=== PATIENT | female | born 1970 | race Caucasian/White ===

== ENCOUNTER 2023-05-07 22:12 | Inpatient (IN) ==
[2023-05-07] MEDS: ONDANSETRON 4 MG/2 ML VIAL IV ONE (23:01)
[2023-05-07 23:35] LABS: ALT/SGPT 32 U/L (<40); AST/SGOT 25 U/L (<32); Albumin 4.2 gm/dL (3.2-5.2); Albumin/Globulin Ratio 1.3 (1.0-2.3); Alkaline Phosphatase 119 U/L (39-117); Bilirubin,Total 0.2 mg/dL (0.1-1.0); Blood Urea Nitrogen 23 mg/dL (6-20); Calcium 9.7 mg/dL (8.6-10.4); Carbon Dioxide 28 mmol/L (22-30); Chloride 79 mmol/L (96-108); Globulin 3.2 gm/dL (2.2-3.7); Glomerular Filtration Rate 63; Glucose 159 mg/dL (70-105)
[2023-05-07 23:51] LABS: Basophils # (Auto) 0.04 K/mcL (0.00-0.30); Basophils % (Auto) 0.3 % (0.0-2.0); Eosinophils # (Auto) 0.14 K/mcL (0.00-0.70); Eosinophils % (Auto) 1.1 % (0.0-7.0); Hematocrit 33.8 % (34.1-44.9); Hemoglobin 12.3 g/dL (11.2-15.7); Lymphocytes # (Auto) 3.81 K/mcL (1.50-4.80); Lymphocytes % (Auto) 30.6 % (15.5-49.0); Mean Cell Volume 82.6 fL (80.0-100.0); Mean Corpuscular HGB Conc 36.4 g/dL (31.0-36.0); Mean Platelet Volume 8.5 fL (8.8-12.5); Monocytes # (Auto) 1.41 K/mcL (0.10-0.90); Monocytes % (Auto) 11.3 % (1.0-12.0); Neutrophils % (Auto) 56.3 % (38.0-78.0); Platelet Count 368 K/mcL (140-440); RBC 4.09 M/mcL (3.59-5.38); Red Cell Distribution Width 11.7 % (11.5-14.5); WBC 12.4 K/mcL (4.5-11.0)
[2023-05-08] MEDS ORDERED: hydrALAZINE 20 MG/ML VIAL IV PRN (01:20)
[2023-05-08] MEDS: 0.9 % SODIUM CHLORIDE 1,000 ML IV SCH (01:40)
[2023-05-08] MEDS ORDERED: ONDANSETRON 4 MG/2 ML VIAL IV PRN ×2 (01:58→07:38)
[2023-05-08] MEDS ORDERED: POTASSIUM CHLORIDE 40 MEQ in DEXTROSE 5% IN WATER 500 ML IV PRN (07:38)
[2023-05-08] MEDS ORDERED: MAGNESIUM SULFATE 2 GM/50 ML BAG IV PRN (07:38)
[2023-05-08] MEDS ORDERED: POTASSIUM CHLORIDE 20 MEQ TABLET PO PRN (07:38)
[2023-05-08] MEDS ORDERED: POLYETHYLENE GLYCOL 3350 17 GM PACKET PO PRN (07:38)
[2023-05-08] MEDS ORDERED: ENALAPRILAT 1.25 MG/ML VIAL IV PRN (07:38)
[2023-05-08] MEDS ORDERED: DEXTROSE 31 GM ORAL.SUSP PO PRN (07:39)
[2023-05-08] MEDS ORDERED: PROCHLORPERAZINE 10 MG/2 ML VIAL IV PRN (07:39)
[2023-05-08] MEDS ORDERED: IPRATROPIUM/ALBUTEROL 3 ML AMPUL.NEB NEB PRN (07:39)
[2023-05-08] MEDS ORDERED: ACETAMINOPHEN 325 MG TABLET PO PRN (07:39)
[2023-05-08] MEDS ORDERED: DEXTROSE 50% 50 ML VIAL IV PRN (07:39)
[2023-05-08 08:13] LABS: Basophils # (Auto) 0.02 K/mcL (0.00-0.30); Basophils % (Auto) 0.2 % (0.0-2.0); Eosinophils # (Auto) 0.11 K/mcL (0.00-0.70); Eosinophils % (Auto) 1.3 % (0.0-7.0); Hematocrit 33.6 % (34.1-44.9); Lymphocytes # (Auto) 2.48 K/mcL (1.50-4.80); Lymphocytes % (Auto) 29.3 % (15.5-49.0); Mean Cell Volume 83.8 fL (80.0-100.0); Mean Corpuscular HGB Conc 35.7 g/dL (31.0-36.0); Mean Platelet Volume 8.5 fL (8.8-12.5); Monocytes # (Auto) 0.92 K/mcL (0.10-0.90); Monocytes % (Auto) 10.9 % (1.0-12.0); Neutrophils % (Auto) 58.1 % (38.0-78.0); Platelet Count 336 K/mcL (140-440); RBC 4.01 M/mcL (3.59-5.38); Red Cell Distribution Width 11.7 % (11.5-14.5); WBC 8.5 K/mcL (4.5-11.0)
[2023-05-08 08:39] LABS: ALT/SGPT 30 U/L (<40); AST/SGOT 33 U/L (<32); Albumin 4.3 gm/dL (3.2-5.2); Albumin/Globulin Ratio 1.5 (1.0-2.3); Alkaline Phosphatase 130 U/L (39-117); Bilirubin,Direct < 0.2 mg/dL (0-0.3); Bilirubin,Total 0.4 mg/dL (0.1-1.0); Blood Urea Nitrogen 17 mg/dL (6-20); Calcium 9.2 mg/dL (8.6-10.4); Carbon Dioxide 30 mmol/L (22-30); Chloride 86 mmol/L (96-108); Globulin 2.9 gm/dL (2.2-3.7); Glomerular Filtration Rate 72; Glucose 155 mg/dL (70-105); Lactate Dehydrogenase 194 U/L (135-225); Phosphorous 2.8 mg/dL (2.5-4.5); Triglycerides 103 mg/dL (<150); Uric Acid 6.8 mg/dL (2.5-8.0)
[2023-05-08] MEDS: DEXTROSE 5% IN WATER 1,000 ML IV ONE (09:17)
[2023-05-08] MEDS: ENOXAPARIN 40 MG/0.4 ML SYRINGE SQ SCH (10:03)
[2023-05-08] MEDS: LORazepam 2 MG/ML VIAL IV ONE (10:03)
[2023-05-08] MEDS: LORazepam 2 MG/ML VIAL ONE (10:03)
[2023-05-08] MEDS: INSULIN LISPRO 1 UNIT/0.01 ML UNIT SQ SCH (11:16)
[2023-05-08 11:50] LABS: Sodium, Urine Random 36 mmol/L
[2023-05-08 11:55] LABS: Appearance,Urine HAZY (Clear); Bacteria,Urine FEW /hpf (0); Bilirubin,Urine Negative (Negative); Color,Urine YELLOW; Culture Indicated,Urine Yes; Glucose,Urine (UA) >=500 mg/dL (Negative); Ketones,Urine Negative (Negative); Leukocyte Esterase,Urine 500 /uL (Negative); Nitrate,Urine Negative (Negative); Protein,Urine Negative (Negative); Specific Gravity,Urine 1.005 (1.000-1.035); Urine Blood Negative (Negative); Urine RBC 1 /hpf (0-3); Urine Squamous Epithelial Cell < 1 /hpf (0-4); Urine Transitional Epi Cells < 1 /hpf (0-2); Urine WBC 144 /hpf (0-4); Urobilinogen,Urine Negative
[2023-05-08 12:06] LABS: Osmolality,Urine 263 mOSM/kg (80-1000)
[2023-05-08 12:19] LABS: Blood Urea Nitrogen 17 mg/dL (6-20); Calcium 9.3 mg/dL (8.6-10.4); Carbon Dioxide 30 mmol/L (22-30); Chloride 86 mmol/L (96-108); Glomerular Filtration Rate 72; Glucose 277 mg/dL (70-105)
[2023-05-08] MEDS: 0.9 % SODIUM CHLORIDE 10 ML SYRINGE IV SCH (14:40)
[2023-05-08 18:29] LABS: Blood Urea Nitrogen 16 mg/dL (6-20); Calcium 9.4 mg/dL (8.6-10.4); Carbon Dioxide 31 mmol/L (22-30); Chloride 86 mmol/L (96-108); Glomerular Filtration Rate 83; Glucose 164 mg/dL (70-105)
[2023-05-08] MEDS: METOPROLOL SUCCINATE 25 MG TAB.XL.24H PO SCH (21:09)
[2023-05-08] MEDS: POTASSIUM CHLORIDE 20 MEQ TABLET PO PRN (21:09)
[2023-05-08] MEDS: DEXTROSE 5% IN WATER 250 ML IV ONE (21:09)
[2023-05-08] MEDS: ATORVASTATIN 10 MG TABLET PO SCH (21:09)
[2023-05-09 06:16] LABS: ALT/SGPT 21 U/L (<40); AST/SGOT 20 U/L (<32); Albumin/Globulin Ratio 1.3 (1.0-2.3); Alkaline Phosphatase 111 U/L (39-117); Bilirubin,Direct < 0.2 mg/dL (0-0.3); Bilirubin,Total 0.3 mg/dL (0.1-1.0); Blood Urea Nitrogen 16 mg/dL (6-20); Calcium 9.2 mg/dL (8.6-10.4); Carbon Dioxide 26 mmol/L (22-30); Chloride 94 mmol/L (96-108); Glomerular Filtration Rate 97; Glucose 131 mg/dL (70-105); Lactate Dehydrogenase 185 U/L (135-225); Phosphorous 2.9 mg/dL (2.5-4.5); Triglycerides 83 mg/dL (<150); Uric Acid 5.8 mg/dL (2.5-8.0)
[2023-05-09 07:42] LABS: Basophils # (Auto) 0.03 K/mcL (0.00-0.30); Basophils % (Auto) 0.4 % (0.0-2.0); Eosinophils # (Auto) 0.16 K/mcL (0.00-0.70); Eosinophils % (Auto) 2.2 % (0.0-7.0); Hematocrit 34.3 % (34.1-44.9); Hemoglobin 12.1 g/dL (11.2-15.7); Lymphocytes # (Auto) 2.98 K/mcL (1.50-4.80); Lymphocytes % (Auto) 41.9 % (15.5-49.0); Mean Cell Volume 86.6 fL (80.0-100.0); Mean Corpuscular HGB Conc 35.3 g/dL (31.0-36.0); Mean Platelet Volume 8.6 fL (8.8-12.5); Monocytes # (Auto) 0.76 K/mcL (0.10-0.90); Monocytes % (Auto) 10.7 % (1.0-12.0); Neutrophils % (Auto) 44.7 % (38.0-78.0); Platelet Count 313 K/mcL (140-440); RBC 3.96 M/mcL (3.59-5.38); Red Cell Distribution Width 12.1 % (11.5-14.5); WBC 7.1 K/mcL (4.5-11.0)
[2023-05-09] MEDS: LISINOPRIL 20 MG TABLET PO SCH (11:22)
[2023-05-09] MEDS: cefTRIAXone 1 GM VIAL IV SCH (16:28)
[2023-05-10 06:53] LABS: Blood Urea Nitrogen 14 mg/dL (6-20); Calcium 9.4 mg/dL (8.6-10.4); Carbon Dioxide 27 mmol/L (22-30); Chloride 96 mmol/L (96-108); Glomerular Filtration Rate 102; Glucose 136 mg/dL (70-105)
== END 2023-05-10 12:55 | disposition home or self-care (01) | DRG 640 ==
LOC: ED 22:12 → ICU 22:12 → MEDSUR 05-09 13:49
PROVIDERS: ADMIT Internal Medicine; ATTEND Internal Medicine

== ENCOUNTER 2025-01-18 20:00 | Inpatient (IN) ==
[~2025-01-18 20:00] MED LIST: DEXTROSE 31 GM ORAL.SUSP PO PRN; DEXTROSE 50% 50 ML VIAL IV PRN; ENALAPRILAT 1.25 MG/ML VIAL IV PRN; IPRATROPIUM/ALBUTEROL 3 ML AMPUL.NEB NEB PRN; METOCLOPRAMIDE 10 MG/2 ML VIAL IV PRN; ONDANSETRON 4 MG/2 ML VIAL IV PRN; POTASSIUM CHLORIDE 20 MEQ TABLET PO PRN; POTASSIUM CHLORIDE 40 MEQ in DEXTROSE 5% IN WATER 500 ML IV PRN
[2025-01-18] MEDS: INSULIN LISPRO 1 UNIT/0.01 ML UNIT SQ SCH (21:48)
[2025-01-18] MEDS: 0.9 % SODIUM CHLORIDE 500 ML IV ONE (21:49)
[2025-01-18] MEDS: DIAZEPAM 10 MG/2 ML SYRINGE IV PRN (22:01)
[2025-01-18 22:11] LABS: ALT/SGPT 48 U/L (<40); AST/SGOT 124 U/L (<32); Albumin 4.2 gm/dL (3.2-5.2); Albumin/Globulin Ratio 1.4 (1.0-2.3); Alkaline Phosphatase 82 U/L (39-117); Anion Gap 12.0 (8.0-16.0); Bilirubin,Direct 0.3 mg/dL (<0.3); Bilirubin,Total 0.6 mg/dL (0.1-1.0); Blood Urea Nitrogen 16 mg/dL (6-20); Calcium 9.5 mg/dL (8.6-10.4); Carbon Dioxide 24 mmol/L (22-30); Chloride 86 mmol/L (96-108); Globulin 2.9 gm/dL (2.2-3.7); Glucose 93 mg/dL (70-105); Phosphorous 2.8 mg/dL (2.5-4.5); Potassium 3.0 mmol/L (3.3-5.1); Sodium 122 mmol/L (133-145); Triglycerides 98 mg/dL (<150); Uric Acid 6.3 mg/dL (2.5-8.0)
[2025-01-18 22:12] LABS: HDL Cholesterol 36.0 mg/dL (>40); LDL Cholesterol,Calculated 36.0 mg/dL (<100); Triglycerides 100.0 mg/dL (<150)
[2025-01-18 22:18] LABS: Thyroid Stimulating Hormone 2.01 uIU/mL (0.27-5.01)
[2025-01-18] MEDS ORDERED: IOPAMIDOL 100 ML BOTTLE IV ONE (22:25)
[2025-01-18] MEDS: DOCUSATE SODIUM 100 MG CAPSULE PO SCH (23:58)
[2025-01-19] MEDS: POTASSIUM CHLORIDE 20 MEQ TABLET PO PRN (02:45)
[2025-01-19] MEDS: MAGNESIUM SULFATE 2 GM/50 ML BAG IV PRN (02:45)
[2025-01-19 02:49] LABS: Sodium, Urine Random 17 mmol/L
[2025-01-19 05:44] LABS: Basophils # (Auto) 0.01 K/mcL (0.00-0.30); Basophils % (Auto) 0.1 % (0.0-2.0); Eosinophils # (Auto) 0.15 K/mcL (0.00-0.70); Eosinophils % (Auto) 1.7 % (0.0-7.0); Hematocrit 32.0 % (34.1-44.9); Hemoglobin 10.9 g/dL (11.2-15.7); Lymphocytes # (Auto) 2.05 K/mcL (1.50-4.80); Lymphocytes % (Auto) 23.3 % (15.5-49.0); Mean Corpuscular HGB Conc 34.1 g/dL (31.0-36.0); Monocytes # (Auto) 1.14 K/mcL (0.10-0.90); Monocytes % (Auto) 13.0 % (1.0-12.0); Neutrophils % (Auto) 61.7 % (38.0-78.0); Platelet Count 277 K/mcL (140-440); RBC 3.53 M/mcL (3.59-5.38); WBC 8.8 K/mcL (4.5-11.0)
[2025-01-19 06:00] LABS: ALT/SGPT 44 U/L (<40); AST/SGOT 104 U/L (<32); Albumin 3.9 gm/dL (3.2-5.2); Albumin/Globulin Ratio 1.3 (1.0-2.3); Alkaline Phosphatase 78 U/L (39-117); Anion Gap 11.0 (8.0-16.0); Bilirubin,Direct < 0.2 mg/dL (0-0.3); Bilirubin,Total 0.5 mg/dL (0.1-1.0); Blood Urea Nitrogen 12 mg/dL (6-20); Calcium 9.2 mg/dL (8.6-10.4); Carbon Dioxide 24 mmol/L (22-30); Chloride 92 mmol/L (96-108); Globulin 2.9 gm/dL (2.2-3.7); Glucose 91 mg/dL (70-105); Phosphorous 3.9 mg/dL (2.5-4.5); Potassium 4.3 mmol/L (3.3-5.1); Sodium 127 mmol/L (133-145); Triglycerides 88 mg/dL (<150); Uric Acid 6.2 mg/dL (2.5-8.0)
[2025-01-19] MEDS: ENOXAPARIN 40 MG/0.4 ML SYRINGE SQ SCH (09:50)
[2025-01-19 10:12] LABS: Hepatitis A Antibody IgM Non-Reactive (Non-Reactive); Hepatitis B Surface Antigen Negative (Negative)
[2025-01-19] MEDS: LISINOPRIL 20 MG TABLET PO SCH (12:07)
[2025-01-19] MEDS: LABETALOL HCL 20 MG/4 ML VIAL IV PRN (19:38)
[2025-01-19] MEDS: POLYETHYLENE GLYCOL 3350 17 GM PACKET PO PRN (20:03)
[2025-01-19] MEDS: ATORVASTATIN 10 MG TABLET PO SCH (20:03)
[2025-01-19] MEDS: SENNOSIDES 1 TABLET PO PRN (20:04)
[2025-01-19] MEDS: FLUTICASONE/SALMETEROL 50/100 INHALER #14 INH SCH (20:04)
[2025-01-20 06:32] LABS: ALT/SGPT 41 U/L (<40); AST/SGOT 74 U/L (<32); Albumin 3.9 gm/dL (3.2-5.2); Albumin/Globulin Ratio 1.3 (1.0-2.3); Alkaline Phosphatase 82 U/L (39-117); Anion Gap 10.0 (8.0-16.0); Bilirubin,Direct 0.2 mg/dL (<0.3); Bilirubin,Total 0.4 mg/dL (0.1-1.0); Blood Urea Nitrogen 10 mg/dL (6-20); Calcium 9.2 mg/dL (8.6-10.4); Carbon Dioxide 24 mmol/L (22-30); Chloride 97 mmol/L (96-108); Globulin 3.0 gm/dL (2.2-3.7); Glucose 94 mg/dL (70-105); Phosphorous 3.3 mg/dL (2.5-4.5); Potassium 4.3 mmol/L (3.3-5.1); Sodium 131 mmol/L (133-145); Triglycerides 80 mg/dL (<150); Uric Acid 4.2 mg/dL (2.5-8.0)
[2025-01-20] MEDS: METOPROLOL SUCCINATE 50 MG TAB.XL.24H PO SCH (08:41)
[2025-01-20] MEDS: SODIUM CHLORIDE 1 GM TABLET PO SCH (08:41)
== END 2025-01-20 10:30 | disposition home or self-care (01) | DRG 644 ==
LOC: ICU 21:12
PROVIDERS: ADMIT Internal Medicine; ATTEND Internal Medicine